=== PATIENT | female | born 1995 | race Caucasian/White ===

== ENCOUNTER 2016-05-18 14:59 | Emergency (ER) | payer OTHER ==
[~2016-05-18] VITALS: Ht 167.6 cm; Wt 65.0 kg
[~2016-05-18 14:59] MED LIST: BCPILLS PO
[2016-05-18 15:10] VITALS: TEMP 36.9; Ht 167.6 cm; Wt 65.0 kg
--- NOTE | 2016-05-18 16:08 | EMERGENCY ROOM VISIT NOTE ---
History Report prepared by Ino: Lorena Kim Under the Supervision of: Chuy Singh.O. First contact with patient: 15:55 Chief Complaint: ILLNESS Stated Complaint: LETHARGIC, PERSISTANT COUGH, NAUSEA History of Present Illness The patient is a 20 year old female who presents to the Emergency Room with complaints of a persistent illness that began five days ago. She currently rates her discomfort as a 1/10 in severity. The patient notes that she recently traveled to [facility] over spring, but followed all precautions to not eat the abnormal food or drink water. She states that on Monday she returned home and was feeling fatigued. She continued to feel fatigued for the past several days and notes that she has had 2-3 bouts of diarrhea per day. She denies any hematochezia or melena. The patient states that she is feeling foggy. She states that someone she went on the trip with tested positive for Giardia. The patient denies any urinary symptoms, fever, ear ache, sore throat or runny nose. She notes mild abdominal pain persistently. She is also complaining of an occasional cough for the past month, noting that it has been nonproductive. She denies any shortness of breath. No associated chest pain. The patient denies any exposure to mono. She denies any chance of . The patient denies any active medical problems. She denies any recent antibiotic usage. No prior hx of GI problems She has not taken anything for her symptoms. Source of History: patient Onset: five days ago Position: other (global) Symptom Intensity: 1/10 Quality: other (illness) Timing: other (persistent) Associated Symptoms: + abdominal pain, + cough, + diarrhea, + fatigue, No SOB, No fevers, No hematochezia, No melena, No sorethroat, No urinary symptoms Review of Systems See HPI for pertinent positives & negatives. A total of 10 systems reviewed and were otherwise negative. Past Medical & Surgical Medical Problems: (1) Asthma Family History Cancer Diabetes mellitus Heart disease Hypertension Kidney disease Kidney stones Lung disease Social History Smoking Status: Never Smoker Smokeless Tobacco Use: No Alcohol Use: occasionally Marital Status: single Occupation Status: [employer] student Current/Historical Medications Scheduled Control Pills ( Control Pills), 1 TAB PO DAILY Allergies Coded Allergies: No Known Allergies (Unverified , 05/18/16) Physical Exam Vital Signs Date Time Temp Pulse Resp B/P Pulse Ox O2 Delivery O2 Flow Rate FiO2 05/18/16 18:15 66 16 100/70 99 Room Air 05/18/16 17:18 68 16 95/59 100 Room Air 05/18/16 15:10 36.9 75 18 112/65 97 Room Air Physical Exam GENERAL: The patient is a pleasant 20 year old female in no acute distress. VITALS: Afebrile, normal vital signs, normal pulse oximetry on room air. THROAT: No pharyngeal injection, exudates, or tonsillar hypertrophy. Airway is patent. NECK: Supple, nontender, no lymphadenopathy or nuchal rigidity. THORAX : Symmetrical and nontender to palpation without deformity or palpable crepitus. LUNGS : Clear without wheezing, rhonchi, or rales HEART: Regular rate and rhythm . ABDOMEN: Soft and nontender without guarding, rigidity, or rebound tenderness. Bowel sounds are present in all 4 quadrants. There are no palpable masses or organomegaly. No CVA tenderness. Femoral pulses are symmetrical EXTREMITIES : Without deformity or point tenderness. There are no palpable cords, edema, or erythema.. NEUROLOGIC: Intact without focal deficits Medical Decision & Procedures ER Provider Diagnostic Interpretation: CHEST 2 VIEWS ROUTINE CLINICAL HISTORY: Persistent cough. COMPARISON STUDY: Chest radiograph January 15, 2013 P FINDINGS: Lung volumes are normal. There is no pneumothorax or pleural effusion. Cardiac size is normal. Mediastinal contours are normal. No consolidation is identified. There is no evidence of pulmonary edema. IMPRESSION: No acute cardiopulmonary findings. Electronically signed by: Haris Balderas M.D. 05/18/2016 5:43 PM Dictated Date/Time: 05/18/2016 5:43 PM Laboratory Results 05/18/16 16:40 Red Blood Count 4.65, Mean Corpuscular Volume 85.2, Mean Corpuscular Hemoglobin 29.5, Mean Corpuscular Hemoglobin Concent 34.6, Mean Platelet Volume 10.6, Neutrophils (%) (Auto) 63.7, Lymphocytes (%) (Auto) 26.3, Monocytes (%) (Auto) 6.5, Eosinophils (%) (Auto) 2.8, Basophils (%) (Auto) 0.4, Neutrophils # (Auto) 4.31, Lymphocytes # (Auto) 1.78, Monocytes # (Auto) 0.44, Eosinophils # (Auto) 0.19, Basophils # (Auto) 0.03 05/18/16 16:40 Test 05/18/16 16:40 05/18/16 17:12 05/18/16 17:15 White Blood Count 6.77 K/uL (4.8-10.8) Red Blood Count 4.65 M/uL (4.2-5.4) Hemoglobin 13.7 g/dL (12.0-16.0) Hematocrit 39.6 % (37-47) Mean Corpuscular Volume 85.2 fL (80-100) Mean Corpuscular Hemoglobin 29.5 pg (25-34) Mean Corpuscular Hemoglobin Concent 34.6 g/dl (32-36) Platelet Count 186 K/uL (130-400) Mean Platelet Volume 10.6 fL (7.4-10.4) Neutrophils (%) (Auto) 63.7 % Lymphocytes (%) (Auto) 26.3 % Monocytes (%) (Auto) 6.5 % Eosinophils (%) (Auto) 2.8 % Basophils (%) (Auto) 0.4 % Neutrophils # (Auto) 4.31 K/uL (1.4-6.5) Lymphocytes # (Auto) 1.78 K/uL (1.2-3.4) Monocytes # (Auto) 0.44 K/uL (0.11-0.59) Eosinophils # (Auto) 0.19 K/uL (0-0.5) Basophils # (Auto) 0.03 K/uL (0-0.2) RDW Standard Deviation 39.8 fL (36.4-46.3) RDW Coefficient of Variation 12.8 % (11.5-14.5) Immature Granulocyte % (Auto) 0.3 % Immature Granulocyte # (Auto) 0.02 K/uL (0.00-0.02) Anion Gap 5.0 mmol/L (3-11) Est Creatinine Clear Calc Drug Dose 102.8 ml/min Estimated GFR () 120.3 Estimated GFR (Non- 103.8 BUN/Creatinine Ratio 18.0 (10-20) Calcium Level 9.1 mg/dl (8.5-10.1) Total Bilirubin 0.4 mg/dl (0.2-1) Aspartate Amino Transf (AST/SGOT) 12 U/L (15-37) Alanine Aminotransferase (ALT/SGPT) 25 U/L (12-78) Alkaline Phosphatase 76 U/L (45-117) Total Protein 8.3 gm/dl (6.4-8.2) Albumin 4.3 gm/dl (3.4-5.0) Globulin 4.0 gm/dl (2.5-4.0) Albumin/Globulin Ratio 1.1 (0.9-2) Thyroid Stimulating Hormone (TSH) 3.600 uIu/ml (0.300-4.500) Monoscreen NEG (NEG) Influenza Type A Antigen Neg for Influ A (NEG) Influenza Type B Antigen Neg for Influ B (NEG) Urine Color YELLOW Urine Appearance CLEAR (CLEAR) Urine pH 5.5 (4.5-7.5) Urine Specific [place] 1.024 (1.000-1.030) Urine Protein NEG (NEG) Urine Glucose (UA) NEG (NEG) Urine Ketones NEG (NEG) Urine Occult Blood NEG (NEG) Urine Nitrite NEG (NEG) Urine Bilirubin NEG (NEG) Urine Urobilinogen NEG (NEG) Urine Leukocyte Esterase NEG (NEG) Urine WBC (Auto) 1-5 /hpf (0-5) Urine RBC (Auto) 0-4 /hpf (0-4) Urine Hyaline Casts (Auto) 1-5 /lpf (0-5) Urine Epithelial Cells (Auto) >30 /lpf (0-5) Urine Bacteria (Auto) 1+ (NEG) Urine Test NEG (NEG) Laboratory studies as stated above per my review. ED Course 1555: Past medical records reviewed. The patient was evaluated in room B10. A complete history and physical examination was performed. On examination she had very minimal tenderness with palpation to her lower abdomen. She did not have any other findings. She underwent the above diagnostic workup. Chest x-ray was negative no evidence of pneumonia. CBC showed a normal white count. She was not anemic. Her chemistries are within normal limits. TSH is normal not suggestive of thyroid disease. Urinalysis is negative. Urine test is negative. Influenza test is negative. Monospot is negative. This is a 20-year-old woman who presents after recent travel to [facility] and an exposure to Giardia, with complaints of lethargy and diarrhea. She has been unable to provide us with a stool specimen but certainly will need to bring in a specimen for outpatient testing to assess her for giardiasis. She has been instructed on diet and symptomatic care. She's to have close outpatient follow- up with the [facility] or her personal physician. Regarding her cough this is felt to be a post-bronchitic cough. She does not wish to try prednisone or an inhaler and she will continue with outpatient symptomaticcare. Patient is to return if she has worsening symptoms or concerns. The patient is comfortable with this treatment plan. Medical Decision EMR, nurse's notes, diagnostic studies personally reviewed Differential diagnosis-see above The chart was completed utilizing [employer] Voice Recognition Software. Grammatical errors, random word insertions, pronoun errors, and incomplete sentences are an occasional consequence of this system due to software limitations, ambient noise, and hardware issues. Any formal questions or concerns about the content, text, or information contained within the body of this dictation should be directly addressed to the physician for clarification. Impression Primary Impression: Diarrhea Additional Impression: Fatigue Scribe Attestation The scribe's documentation has been prepared under my direction and personally reviewed by me in its entirety. I confirm that the note above accurately reflects all work, treatment, procedures, and medical decision making performed by me. Departure Information Referrals No Doctor, Assigned (PCP) Patient Instructions My [facility] Problem Qualifiers
[2016-05-18 17:09] LABS: BASO % 0.4 %; BASO ABS # 0.03 K/uL (0-0.2); COMPLETE YES; EOS % 2.8 %; HEMATOCRIT 39.6 % (37-47); IG% 0.3 %; LYMPH % 26.3 %; LYMPH ABS # 1.78 K/uL (1.2-3.4); MEAN CELL VOLUME 85.2 fL (80-100); MEAN CORPUSCULAR HEMOGLOBIN 29.5 pg (25-34); MEAN CORPUSCULAR HGB CONC 34.6 g/dl (32-36); MEAN PLATELET VOLUME 10.6 fL (7.4-10.4); MONO % 6.5 %; NEUT % 63.7 %; PLATELET COUNT 186 K/uL (130-400); RED BLOOD COUNT 4.65 M/uL (4.2-5.4); WHITE BLOOD COUNT 6.77 K/uL (4.8-10.8)
[2016-05-18 17:30] LABS: MANUAL MICROSCOPIC REQUIRED? NO; REVIEW REQ? NO; URINE APPEARANCE CLEAR (CLEAR); URINE BILIRUBIN NEG (NEG); URINE COLOR YELLOW; URINE EPITHELIAL CELL AUTO >30 /lpf (0-5); URINE NITRITE NEG (NEG); URINE PH 5.5 (4.5-7.5); URINE SPECIFIC GRAVITY 1.024 (1.000-1.030); UROBILINOGEN NEG (NEG); ZZUR CULT IF INDIC CLEAN CATCH YES
[2016-05-18 17:37] LABS: CALCIUM 9.1 mg/dl (8.5-10.1); CREATININE 0.81 mg/dl (0.60-1.20); POTASSIUM 3.6 mmol/L (3.5-5.1)
--- NOTE | 2016-05-18 17:45 | DIAGNOSTIC IMAGING REPORT ---
CHEST 2 VIEWS ROUTINE CLINICAL HISTORY: Persistent cough. COMPARISON STUDY: Chest radiograph January 15, 2013 P FINDINGS: Lung volumes are normal. There is no pneumothorax or pleural effusion. Cardiac size is normal. Mediastinal contours are normal. No consolidation is identified. There is no evidence of pulmonary edema. IMPRESSION: No acute cardiopulmonary findings. Electronically signed by: Haris Balderas M.D. 05/18/2016 5:43 PM Dictated Date/Time: 05/18/2016 5:43 PM
[2016-05-18 17:47] LABS: ALB/GLOB RATIO 1.1 (0.9-2); THYROID STIMULATING HORMONE 3.6 uIu/ml (0.300-4.500)
[2016-05-18 18:15] VITALS: BP 100/70; PULSE 66; O2SAT 99
== END 2016-05-18 18:21 | disposition home or self-care (01) ==
LOC: C.EDB 15:01
DX: R19.7 Diarrhea, unspecified (principal); R53.83 Other fatigue; J45.909 Unspecified asthma, uncomplicated; Z83.3 Family history of diabetes mellitus; Z82.49 Family history of ischemic heart disease and other diseases of the circulatory system; Z84.1 Family history of disorders of kidney and ureter